=== PATIENT | male | born 1945 | race African-American/Black ===

== ENCOUNTER 2018-10-04 13:36 | Inpatient (IN) | payer MEDICARE, MEDICAID ==
[~2018-10-04] VITALS: Ht 180.3 cm; Wt 49.4 kg
[2018-10-04] MEDS ORDERED: MAGNESIUM 2 G PREMIX 50 ML IV STA (13:48)
[2018-10-04] MEDS ORDERED: ALBUTEROL (0.083%) 2.5MG/3ML NEB HHN STA ×3 (13:48→16:40)
[2018-10-04] MEDS ORDERED: IPRATROPIUM BROMIDE (0.02%) 0.5MG/2.5ML NEB HHN STA (13:48)
[2018-10-04] MEDS ORDERED: METHYLPREDNISOLONE SOD SUCC 125 MG/2 ML VIAL IV STA (13:48)
[2018-10-04] MEDS ORDERED: LEVOFLOXACIN 500MG PREMIX 100 ML IV ONE (14:00)
[2018-10-04 14:40] LABS: BASOPHILS % 0.5 % (0.0-2.0); EOSINOPHILS % 1.2 % (0.0-5.0); HEMATOCRIT. 42.3 % (42.0-52.0); HEMOGLOBIN. 13.3 g/dL (14.0-18.0); LYMPHOCYTES % 20.1 % (20.0-50.0); MEAN CORPUSCULAR HEMOGLOBIN 24.5 pg (28.0-32.0); MEAN CORPUSCULAR VOLUME 77.9 fL (80.0-94.0); MEAN PLATELET VOLUME 8.2 fl (7.4-10.4); MONOCYTES % 4.8 % (2.0-8.0); NEUTROPHILS % 73.4 % (40.0-76.0); PLATELET 238 x1000/uL (130-400); RED BLOOD CELL COUNT 5.43 mill/uL (4.7-6.1); RED CELL DISTRIBUTION WIDTH 16.5 % (11.6-14.6)
[2018-10-04 15:06] LABS: CHLORIDE 95 mEq/L (98-107)
[2018-10-04 15:10] LABS: ETHANOL BLOOD < 10 mg/dL
[2018-10-04 15:14] LABS: D-DIMER 1.57 mg/L FEU (<0.50); INR 1.1; PARTIAL THROMBOPLASTIN TIME 30.5 sec (23.4-31.0); PROTHROMBIN TIME 10.7 sec (9.1-11.1)
[2018-10-04] MEDS ORDERED: SODIUM CHLORIDE 0.9% 1,000 ML IV NR (15:51)
[2018-10-04 16:07] LABS: CLARITY URINE CLEAR (CLEAR); COLOR URINE YELLOW (YELLOW); KETONES URINE 1+ (NEGATIVE); LEUKOCYTE ESTERASE URINE NEGATIVE (NEGATIVE); NITRITE URINE NEGATIVE (NEGATIVE); OCCULT BLOOD URINE NEGATIVE (NEGATIVE); PH URINE 6.5 (4.5-8.0); PROTEIN URINE 1+ (NEGATIVE); SPECIFIC GRAVITY URINE 1.014 (1.005-1.030); UROBILINOGEN URINE 0.2 E.U./dL (0.2-1.0)
[2018-10-04 16:22] LABS: *AMPHETAMINES SCREEN URINE NEGATIVE (NEGATIVE)
[2018-10-04 16:23] LABS: *BARBITURATES SCREEN URINE NEGATIVE (NEGATIVE); *BENZODIAZEPINES SCREEN URINE NEGATIVE (NEGATIVE); *COCAINE SCREEN URINE NEGATIVE (NEGATIVE); METHADONE URINE SCREEN NEGATIVE (NEGATIVE); OPIATES URINE SCREEN NEGATIVE (NEGATIVE); PHENCYCLIDINE URINE SCREEN NEGATIVE (NEGATIVE)
[2018-10-04 16:24] LABS: CANNABINOID URINE SCREEN NEGATIVE (NEGATIVE)
[2018-10-04] MEDS ORDERED: GUAIFENESIN-DM 200MG-20MG/10ML UDC PO PRN (17:15)
[2018-10-04] MEDS ORDERED: ACETAMINOPHEN 325MG TABLET PO PRN (17:15)
[2018-10-04] MEDS ORDERED: METHYLPREDNISOLONE SOD SUCC 40 MG/ML VIAL IV SCH (17:15)
[2018-10-04] MEDS ORDERED: IPRATROPIUM/ALBUTEROL 0.5-3(2.5)MG/3ML NEB HHN PRN (17:15)
[2018-10-04] MEDS ORDERED: CLONIDINE 0.1MG TABLET PO PRN (17:15)
[2018-10-04] MEDS ORDERED: IOHEXOL-350 100 ML BOTTLE ONE (20:03)
[2018-10-04] MEDS: AMLODIPINE 5MG TABLET PO SCH (21:11)
[2018-10-05] VITALS (7 sets, daily range): BP systolic 102–158; BP diastolic 73–104
[2018-10-05] MEDS: IPRATROPIUM/ALBUTEROL 0.5-3(2.5)MG/3ML NEB HHN SCH ×5 (04:34→20:07)
[2018-10-05] MEDS: METHYLPREDNISOLONE SOD SUCC 40 MG/ML VIAL IV SCH ×3 (05:32→21:28)
[2018-10-05 07:09] LABS: BASOPHILS % 0.1 % (0.0-2.0); HEMATOCRIT. 32.9 % (42.0-52.0); HEMOGLOBIN. 10.7 g/dL (14.0-18.0); LYMPHOCYTES % 19.4 % (20.0-50.0); MEAN CORPUSCULAR HEMOGLOBIN 24.5 pg (28.0-32.0); MEAN CORPUSCULAR VOLUME 75.3 fL (80.0-94.0); MEAN PLATELET VOLUME 8.2 fl (7.4-10.4); MONOCYTES % 5.5 % (2.0-8.0); PLATELET 208 x1000/uL (130-400); RED BLOOD CELL COUNT 4.37 mill/uL (4.7-6.1)
[2018-10-05 07:19] LABS: CHLORIDE 100 mEq/L (98-107)
[2018-10-05] MEDS: AMLODIPINE 5MG TABLET PO SCH ×2 (08:17→21:00)
[2018-10-05] MEDS ORDERED: POTASSIUM CHLORIDE 20MEQ TABLET SR PO ONE (10:15)
[2018-10-05] MEDS ORDERED: POTASSIUM CHLORIDE 20MEQ TABLET SR PO SCH (10:15)
[2018-10-05] MEDS ORDERED: METHYLPREDNISOLONE SOD SUCC 40 MG/ML VIAL IV SCH (17:00)
[2018-10-05 17:22] LABS: T4 FREE 1.03 ng/dL (0.76-1.46)
[2018-10-05 19:03] LABS: BG CARBOXYHEMOGLOBIN 0.2 % (0.5-1.5); BG DEOXYHEMOGLOBIN 1.5 % (0.0-5.0); BG FRACTION INSPIRED OXYGEN 28; BG METHEMOGLOBIN 0.3 % (0.0-1.5); BG OXYGEN SATURATION 98.5 % (92.0-98.5); BG PCO2 46.8 mmHg (35.0-45.0); BG PH 7.439 (7.350-7.450); BG PO2 130.5 mmHg (75.0-100.0); BG SAMPLE SITE RIGHT RADIAL; BG TOTAL HEMOGLOBIN 11.2 g/dL (12.0-18.0); BG VENT MODE NASAL CANNULA
[2018-10-05 20:06] LABS: CARCINO EMBRYONIC ANTIGEN 1.5 ng/ml; PROSTRATE SPECIFIC AG TOTAL 3.06 ng/mL (0.0-4.0)
[2018-10-06] VITALS (7 sets, daily range): BP systolic 111–134; BP diastolic 78–93
[2018-10-06] MEDS: IPRATROPIUM/ALBUTEROL 0.5-3(2.5)MG/3ML NEB HHN SCH ×6 (00:09→21:24)
[2018-10-06] MEDS: METHYLPREDNISOLONE SOD SUCC 40 MG/ML VIAL IV SCH ×3 (05:15→21:00)
[2018-10-06 06:53] LABS: HEMATOCRIT. 31.2 % (42.0-52.0); HEMOGLOBIN. 10.2 g/dL (14.0-18.0); MEAN CORPUSCULAR HEMOGLOBIN 25.1 pg (28.0-32.0); MEAN CORPUSCULAR VOLUME 76.6 fL (80.0-94.0); MEAN PLATELET VOLUME 8.2 fl (7.4-10.4); PLATELET 187 x1000/uL (130-400); RED BLOOD CELL COUNT 4.07 mill/uL (4.7-6.1); RED CELL DISTRIBUTION WIDTH 15.8 % (11.6-14.6)
[2018-10-06 07:02] LABS: CHLORIDE 101 mEq/L (98-107)
[2018-10-06] MEDS: AMLODIPINE 5MG TABLET PO SCH ×2 (08:15→21:00)
[2018-10-06 10:04] LABS: BG BASE EXCESS 6.5 mmol/L (-2.0-2.0); BG CARBOXYHEMOGLOBIN 0.3 % (0.5-1.5); BG DEOXYHEMOGLOBIN 4.6 % (0.0-5.0); BG FRACTION INSPIRED OXYGEN 28; BG HCO3 ACT 32.1 mmol/L (22.0-26.0); BG METHEMOGLOBIN 0.3 % (0.0-1.5); BG OXYGEN SATURATION 95.4 % (92.0-98.5); BG OXYHEMOGLOBIN 94.8 % (94.0-97.0); BG PCO2 50.2 mmHg (35.0-45.0); BG PH 7.423 (7.350-7.450); BG PO2 77.4 mmHg (75.0-100.0); BG SAMPLE SITE RIGHT RADIAL; BG TOTAL HEMOGLOBIN 11.5 g/dL (12.0-18.0); BG VENT MODE NASAL CANNULA
[2018-10-06 20:15] LABS: PLATELET ESTIMATE NORMAL
[2018-10-07] MEDS: IPRATROPIUM/ALBUTEROL 0.5-3(2.5)MG/3ML NEB HHN SCH ×6 (02:32→20:21)
[2018-10-07 04:17] VITALS: BP 106/71
[2018-10-07] MEDS: METHYLPREDNISOLONE SOD SUCC 40 MG/ML VIAL IV SCH ×3 (05:04→21:37)
[2018-10-07 08:10] VITALS: BP 129/82
[2018-10-07] MEDS: AMLODIPINE 5MG TABLET PO SCH ×2 (08:19→21:37)
[2018-10-07 12:20] VITALS: BP 129/87
[2018-10-07 16:00] VITALS: BP 132/81
[2018-10-07] MEDS ORDERED: BISACODYL 5MG TABLET PO NR (16:30)
[2018-10-07] MEDS ORDERED: BISACODYL 10MG SUPP PR PRN (16:30)
[2018-10-07] MEDS: PANTOPRAZOLE 40MG DR TABLET PO SCH (16:42)
[2018-10-07] MEDS: DOCUSATE SODIUM 100MG CAPSULE PO SCH (16:42)
[2018-10-07] MEDS ORDERED: INFLUENZA VIRUS VACCINE(AFLURIA) 0.5ML SYR IM ONE (16:45)
[2018-10-07 20:36] VITALS: BP 134/96
[2018-10-08] MEDS: IPRATROPIUM/ALBUTEROL 0.5-3(2.5)MG/3ML NEB HHN SCH ×6 (00:28→20:14)
[2018-10-08 00:46] VITALS: BP 136/87
[2018-10-08 04:00] VITALS: BP 137/77
[2018-10-08] MEDS: METHYLPREDNISOLONE SOD SUCC 40 MG/ML VIAL IV SCH ×2 (06:31→17:36)
[2018-10-08] MEDS: PANTOPRAZOLE 40MG DR TABLET PO SCH (06:39)
[2018-10-08 06:42] LABS: HEMATOCRIT. 33.8 % (42.0-52.0); HEMOGLOBIN. 10.9 g/dL (14.0-18.0); MEAN CORPUSCULAR HEMOGLOBIN 24.9 pg (28.0-32.0); MEAN PLATELET VOLUME 8.2 fl (7.4-10.4); PLATELET 185 x1000/uL (130-400); RED BLOOD CELL COUNT 4.39 mill/uL (4.7-6.1); RED CELL DISTRIBUTION WIDTH 15.7 % (11.6-14.6)
[2018-10-08 06:53] LABS: CHLORIDE 100 mEq/L (98-107)
[2018-10-08 08:00] VITALS: BP 126/92
[2018-10-08] MEDS: DOCUSATE SODIUM 100MG CAPSULE PO SCH ×2 (08:24→17:34)
[2018-10-08] MEDS: AMLODIPINE 5MG TABLET PO SCH ×2 (08:24→20:42)
[2018-10-08] MEDS: ONDANSETRON HCL 4MG/2ML INJ IV PRN (10:21)
[2018-10-08 12:00] VITALS: BP 134/79
[2018-10-08] MEDS ORDERED: LACTULOSE 20G/30ML UDC PO SCH (14:15)
[2018-10-08 16:00] VITALS: BP 126/70
[2018-10-08 16:02] LABS: PLATELET ESTIMATE NORMAL
[2018-10-08 20:25] VITALS: BP 117/81
[2018-10-09] VITALS: BP 120/79
[2018-10-09] MEDS: IPRATROPIUM/ALBUTEROL 0.5-3(2.5)MG/3ML NEB HHN SCH ×6 (00:28→21:27)
[2018-10-09 04:45] VITALS: BP 125/81
[2018-10-09] MEDS: METHYLPREDNISOLONE SOD SUCC 40 MG/ML VIAL IV SCH ×2 (06:03→18:41)
[2018-10-09 07:31] LABS: BASOPHILS % 0.1 % (0.0-2.0); CHLORIDE 100 mEq/L (98-107); HEMATOCRIT. 35.7 % (42.0-52.0); HEMOGLOBIN. 11.3 g/dL (14.0-18.0); LYMPHOCYTES % 10.8 % (20.0-50.0); MEAN CORPUSCULAR HEMOGLOBIN 24.6 pg (28.0-32.0); MONOCYTES % 7.4 % (2.0-8.0); NEUTROPHILS % 81.7 % (40.0-76.0); PLATELET 164 x1000/uL (130-400); RED BLOOD CELL COUNT 4.58 mill/uL (4.7-6.1); RED CELL DISTRIBUTION WIDTH 16.2 % (11.6-14.6)
[2018-10-09 08:00] VITALS: BP_SYST 110; BP_SYST 131; BP_DIAS 70; BP_DIAS 86
[2018-10-09] MEDS: FAMOTIDINE 20MG TABLET PO SCH (08:13)
[2018-10-09] MEDS: DOCUSATE SODIUM 100MG CAPSULE PO SCH ×2 (08:13→18:41)
[2018-10-09] MEDS: AMLODIPINE 5MG TABLET PO SCH ×2 (08:14→20:39)
[2018-10-09 12:00] VITALS: BP 158/116
[2018-10-09 16:00] VITALS: BP 112/72
[2018-10-09 20:00] VITALS: BP 110/77
[2018-10-10] VITALS: BP 115/76
[2018-10-10] MEDS: IPRATROPIUM/ALBUTEROL 0.5-3(2.5)MG/3ML NEB HHN SCH ×6 (02:09→19:50)
[2018-10-10 04:00] VITALS: BP 120/78
[2018-10-10] MEDS: METHYLPREDNISOLONE SOD SUCC 40 MG/ML VIAL IV SCH ×2 (06:12→17:51)
[2018-10-10 07:04] LABS: HEMATOCRIT. 31.1 % (42.0-52.0); HEMOGLOBIN. 10.2 g/dL (14.0-18.0); LYMPHOCYTES % 7.6 % (20.0-50.0); MEAN CORPUSCULAR HEMOGLOBIN 25.1 pg (28.0-32.0); MEAN CORPUSCULAR VOLUME 76.8 fL (80.0-94.0); MEAN PLATELET VOLUME 8.3 fl (7.4-10.4); MONOCYTES % 5.7 % (2.0-8.0); NEUTROPHILS % 86.7 % (40.0-76.0); PLATELET 182 x1000/uL (130-400); RED BLOOD CELL COUNT 4.04 mill/uL (4.7-6.1)
[2018-10-10 08:00] VITALS: BP 120/80
[2018-10-10 08:05] LABS: CHLORIDE 97 mEq/L (98-107)
[2018-10-10] MEDS: FAMOTIDINE 20MG TABLET PO SCH (09:47)
[2018-10-10] MEDS: AMLODIPINE 5MG TABLET PO SCH ×2 (09:47→20:53)
[2018-10-10] MEDS: DOCUSATE SODIUM 100MG CAPSULE PO SCH ×2 (09:47→17:51)
[2018-10-10 12:00] VITALS: BP 116/79
[2018-10-10 16:00] VITALS: BP 99/65
[2018-10-10 20:00] VITALS: BP 102/67
[2018-10-11] VITALS: BP 123/90
[2018-10-11] MEDS: IPRATROPIUM/ALBUTEROL 0.5-3(2.5)MG/3ML NEB HHN SCH ×6 (01:14→20:01)
[2018-10-11 04:00] VITALS: BP 125/88
[2018-10-11] MEDS: METHYLPREDNISOLONE SOD SUCC 40 MG/ML VIAL IV SCH ×2 (06:42→18:36)
[2018-10-11 08:00] VITALS: BP 137/83
[2018-10-11] MEDS: AMLODIPINE 5MG TABLET PO SCH ×2 (09:36→21:49)
[2018-10-11] MEDS: FAMOTIDINE 20MG TABLET PO SCH (09:36)
[2018-10-11] MEDS: DOCUSATE SODIUM 100MG CAPSULE PO SCH ×2 (09:36→18:36)
[2018-10-11] MEDS: ONDANSETRON HCL 4MG/2ML INJ IV PRN ×2 (09:40→18:36)
[2018-10-11 12:00] VITALS: BP 122/78
[2018-10-11 13:53] LABS: BG CARBOXYHEMOGLOBIN 0.4 % (0.5-1.5); BG DEOXYHEMOGLOBIN 8.1 % (0.0-5.0); BG FRACTION INSPIRED OXYGEN 21; BG HCO3 ACT 35.4 mmol/L (22.0-26.0); BG METHEMOGLOBIN 0.2 % (0.0-1.5); BG OXYGEN SATURATION 91.9 % (92.0-98.5); BG OXYHEMOGLOBIN 91.3 % (94.0-97.0); BG PCO2 51.9 mmHg (35.0-45.0); BG PH 7.452 (7.350-7.450); BG SAMPLE SITE LEFT BRACHIAL; BG TOTAL HEMOGLOBIN 11.4 g/dL (12.0-18.0); BG VENT MODE ROOM AIR
[2018-10-11 16:00] VITALS: BP 120/75
[2018-10-11 20:00] VITALS: BP 122/87
[2018-10-12] VITALS: BP 108/69
[2018-10-12] MEDS: IPRATROPIUM/ALBUTEROL 0.5-3(2.5)MG/3ML NEB HHN SCH ×4 (00:05→20:28)
[2018-10-12 04:00] VITALS: BP 114/75
[2018-10-12] MEDS: METHYLPREDNISOLONE SOD SUCC 40 MG/ML VIAL IV SCH ×2 (06:25→17:14)
[2018-10-12 07:04] LABS: HEMATOCRIT. 33.3 % (42.0-52.0); HEMOGLOBIN. 10.9 g/dL (14.0-18.0); LYMPHOCYTES % 8.3 % (20.0-50.0); MEAN CORPUSCULAR HEMOGLOBIN 24.9 pg (28.0-32.0); MEAN CORPUSCULAR VOLUME 76.4 fL (80.0-94.0); MONOCYTES % 6.5 % (2.0-8.0); NEUTROPHILS % 85.2 % (40.0-76.0); PLATELET 207 x1000/uL (130-400); RED BLOOD CELL COUNT 4.35 mill/uL (4.7-6.1)
[2018-10-12 07:14] LABS: CHLORIDE 96 mEq/L (98-107)
[2018-10-12 07:54] VITALS: BP 123/83
[2018-10-12] MEDS: FAMOTIDINE 20MG TABLET PO SCH (08:05)
[2018-10-12] MEDS: DOCUSATE SODIUM 100MG CAPSULE PO SCH ×2 (08:05→16:13)
[2018-10-12] MEDS: AMLODIPINE 5MG TABLET PO SCH ×2 (08:05→21:44)
[2018-10-12 11:50] VITALS: BP 123/81
[2018-10-12 16:00] VITALS: BP 106/74
[2018-10-12 20:32] VITALS: BP 123/86
[2018-10-13 00:15] VITALS: BP 109/71
[2018-10-13] MEDS: IPRATROPIUM/ALBUTEROL 0.5-3(2.5)MG/3ML NEB HHN SCH ×6 (00:17→20:07)
[2018-10-13 04:30] VITALS: BP 112/80
[2018-10-13] MEDS: METHYLPREDNISOLONE SOD SUCC 40 MG/ML VIAL IV SCH (06:26)
[2018-10-13 08:30] VITALS: BP 122/86
[2018-10-13] MEDS: DOCUSATE SODIUM 100MG CAPSULE PO SCH ×2 (08:37→17:40)
[2018-10-13] MEDS: AMLODIPINE 5MG TABLET PO SCH ×2 (08:37→20:07)
[2018-10-13] MEDS: FAMOTIDINE 20MG TABLET PO SCH (08:37)
[2018-10-13 12:11] VITALS: BP 120/84
[2018-10-13 16:00] VITALS: BP 129/79
[2018-10-13 19:53] VITALS: BP 102/64
[2018-10-14] VITALS: BP 113/77
[2018-10-14] MEDS: IPRATROPIUM/ALBUTEROL 0.5-3(2.5)MG/3ML NEB HHN SCH ×6 (01:06→20:40)
[2018-10-14 04:00] VITALS: BP 98/65
[2018-10-14 08:00] VITALS: BP 104/78
[2018-10-14] MEDS: AMLODIPINE 5MG TABLET PO SCH ×2 (08:25→21:00)
[2018-10-14] MEDS: DOCUSATE SODIUM 100MG CAPSULE PO SCH ×2 (08:26→17:21)
[2018-10-14] MEDS: FAMOTIDINE 20MG TABLET PO SCH (08:26)
[2018-10-14] MEDS: PREDNISONE 20MG TABLET PO SCH (08:26)
[2018-10-14 12:00] VITALS: BP 106/63
[2018-10-14 16:00] VITALS: BP 101/72
[2018-10-15] MEDS: IPRATROPIUM/ALBUTEROL 0.5-3(2.5)MG/3ML NEB HHN SCH ×6 (00:35→20:31)
[2018-10-15 06:58] LABS: BASOPHILS % 0.1 % (0.0-2.0); EOSINOPHILS % 0.1 % (0.0-5.0); HEMATOCRIT. 30.1 % (42.0-52.0); HEMOGLOBIN. 9.8 g/dL (14.0-18.0); LYMPHOCYTES % 10.8 % (20.0-50.0); MEAN CORPUSCULAR HEMOGLOBIN 25.1 pg (28.0-32.0); MEAN CORPUSCULAR VOLUME 77.2 fL (80.0-94.0); MEAN PLATELET VOLUME 7.7 fl (7.4-10.4); MONOCYTES % 9.3 % (2.0-8.0); NEUTROPHILS % 79.7 % (40.0-76.0); PLATELET 207 x1000/uL (130-400); RED CELL DISTRIBUTION WIDTH 16.2 % (11.6-14.6)
[2018-10-15 07:04] LABS: CHLORIDE 100 mEq/L (98-107)
[2018-10-15 08:00] VITALS: BP 109/71
[2018-10-15] MEDS: DOCUSATE SODIUM 100MG CAPSULE PO SCH ×2 (09:00→17:00)
[2018-10-15] MEDS: PREDNISONE 20MG TABLET PO SCH (09:04)
[2018-10-15] MEDS: FAMOTIDINE 20MG TABLET PO SCH (09:04)
[2018-10-15] MEDS: AMLODIPINE 5MG TABLET PO SCH ×2 (09:05→20:46)
[2018-10-15 20:48] VITALS: BP 136/91
[2018-10-16] VITALS (7 sets, daily range): BP systolic 113–137; BP diastolic 77–94
[2018-10-16] MEDS: IPRATROPIUM/ALBUTEROL 0.5-3(2.5)MG/3ML NEB HHN SCH ×5 (01:26→20:32)
[2018-10-16] MEDS: FAMOTIDINE 20MG TABLET PO SCH (09:11)
[2018-10-16] MEDS: AMLODIPINE 5MG TABLET PO SCH ×2 (09:11→21:35)
[2018-10-16] MEDS: DOCUSATE SODIUM 100MG CAPSULE PO SCH ×2 (09:11→17:08)
[2018-10-16] MEDS: PREDNISONE 20MG TABLET PO SCH (09:11)
[2018-10-16 13:07] LABS: HIV SCREEN 4G Non Reactive (Non Reactive)
[2018-10-16] MEDS ORDERED: ONDANSETRON 4MG ODT PO NR (14:45)
[2018-10-17] MEDS: IPRATROPIUM/ALBUTEROL 0.5-3(2.5)MG/3ML NEB HHN SCH ×6 (00:11→21:00)
[2018-10-17 03:55] VITALS: BP 109/69
[2018-10-17 08:00] VITALS: BP 117/75
[2018-10-17] MEDS: DOCUSATE SODIUM 100MG CAPSULE PO SCH (08:57)
[2018-10-17] MEDS: PREDNISONE 20MG TABLET PO SCH (08:57)
[2018-10-17] MEDS: FAMOTIDINE 20MG TABLET PO SCH (08:58)
[2018-10-17] MEDS: AMLODIPINE 5MG TABLET PO SCH ×3 (08:58→21:59)
[2018-10-17 12:25] VITALS: BP 102/68
[2018-10-17 16:00] VITALS: BP 120/83
[2018-10-17 20:05] VITALS: BP 116/81
[2018-10-18] VITALS (7 sets, daily range): BP systolic 106–121; BP diastolic 74–85
[2018-10-18] MEDS: IPRATROPIUM/ALBUTEROL 0.5-3(2.5)MG/3ML NEB HHN SCH ×6 (00:39→20:28)
[2018-10-18] MEDS: AMLODIPINE 5MG TABLET PO SCH ×2 (08:59→20:54)
[2018-10-18] MEDS: FAMOTIDINE 20MG TABLET PO SCH (08:59)
[2018-10-18] MEDS: PREDNISONE 20MG TABLET PO SCH (09:00)
[2018-10-18] MEDS: DOCUSATE SODIUM 100MG CAPSULE PO SCH ×2 (09:00→17:00)
[2018-10-19] MEDS: IPRATROPIUM/ALBUTEROL 0.5-3(2.5)MG/3ML NEB HHN SCH ×3 (00:25→08:13)
[2018-10-19 04:08] VITALS: BP 108/80
[2018-10-19 08:24] VITALS: BP 124/88
[2018-10-19] MEDS: FAMOTIDINE 20MG TABLET PO SCH (09:34)
[2018-10-19] MEDS: PREDNISONE 20MG TABLET PO SCH (09:34)
[2018-10-19] MEDS: DOCUSATE SODIUM 100MG CAPSULE PO SCH (09:34)
[2018-10-19] MEDS: AMLODIPINE 5MG TABLET PO SCH (09:35)
== END 2018-10-19 11:15 | disposition home or self-care (01) | DRG 205 ==
LOC: ER 13:46 → EDBEDREQ 13:53 → 6WST 21:50 → EDBEDREQTM 21:53 → EDBEDREQ 21:53 → ENRESERV 23:34
PROVIDERS: ADMIT Internal Medicine; ATTEND Internal Medicine
DX: M94.0 Chondrocostal junction syndrome [Tietze] (principal); J96.22 Acute and chronic respiratory failure with hypercapnia; J44.1 Chronic obstructive pulmonary disease with (acute) exacerbation; E87.2 Acidosis; I50.40 Unspecified combined systolic (congestive) and diastolic (congestive) heart failure; J45.901 Unspecified asthma with (acute) exacerbation; Z68.1 Body mass index [BMI] 19.9 or less, adult; E87.6 Hypokalemia; D64.9 Anemia, unspecified; E87.8 Other disorders of electrolyte and fluid balance, not elsewhere classified; F17.200 Nicotine dependence, unspecified, uncomplicated; K59.00 Constipation, unspecified; I11.0 Hypertensive heart disease with heart failure; R63.4 Abnormal weight loss
CPT/HCPCS: 36415; 36600; 71045; 71275; 80048; 80305; 82375; 82378; 82805; 83605; 83880; 84145; 84153; 84439; 84443; 84484; 85379; 87389; 90686; 93005; 93306; 93970; 94640; 94644; 96365; 96366; 96375; 97116; 97162; 97530; 97535; 99291; C1893; G0482; J1956; J2405; J2920; J2930; J3475; J7512; J7611; J7620; Q0162; Q9967; G0103